=== PATIENT | female | born 1975 | race African-American/Black ===

== ENCOUNTER 2018-08-12 07:04 | Day surgery (SDC) | payer OTHER ==
[2018-08-12] MEDS ORDERED: PROPOFOL 40 ML (09:33)
[2018-08-12] MEDS ORDERED: LIDOCAINE 2% (SDV) 5 ML INJ (09:33)
[2018-08-12] MEDS ORDERED: PROPOFOL 20 ML ×4 (10:39)
[2018-08-12] MEDS ORDERED: PHENYLephrine (100 MCG/ML) 10ML SYG (10:54)
[2018-08-12] MEDS ORDERED: ONDANSETRON 4 MG INJ IV (11:00)
== END 2018-08-12 11:57 | disposition home or self-care (01) ==
LOC: GIL 07:04
DX: R19.4 Change in bowel habit (principal); Z86.010 Personal history of colon polyps; K64.8 Other hemorrhoids; K21.9 Gastro-esophageal reflux disease without esophagitis; I10 Essential (primary) hypertension; J45.909 Unspecified asthma, uncomplicated
CPT/HCPCS: 43239; 88305; 88312